=== PATIENT | female | born 1990 ===

== ENCOUNTER 2025-05-23 08:09 | Outpatient (AMB) | payer OTHER, SELFPAY ==
--- OUTSIDE RECORDS SUMMARY | 2025-05-23 08:19 | XMS_ITS | Clinical Summary ---
Author Organization [facility] Address [address] [place] [phone] Phone Care Team Providers Care Account Manager Relief Name Role Phone Unavailable Primary Care Provider Unavailabl e Immunizations Immunization Administration Dates Next Due DTP 04/22/1997, 6,03/12/1995,12/06,1992 HPV, Quadrivalent 09/28/2008,11/27/2007,08/28/19 08 Hep B, ped/adol 03/22/1995, 5,1992,03/01 Hib (PRP-T) 12/06/1994,1992 IPV 04/22/1997 Influenza, injectable, trivalent 08/28/2007,01/0 08/2006 MMR 04/22/1997,12/06/1994 Meningococcal Conj (Menactra) MCV4P 08/28/2007 OPV 03/12/1995,12/06/1994,1992 Td (adult) (MBL), 2 Lf tetan us toxoid, PF, adsorbed 12/26/2004 Tdap 09/02/2007 Varicella 08/28/2007,04/26/2003 Social History Tobacco Use Types Packs/Day Years Used Date Smoking Tobacco: Never Assessed Comments Unknown Sex and Gender Information Value Date Recorded Sex Assigned at Not on file Legal Sex Female 4:28 PM EDT Gender Identity Not on file Sexual Orientation Not on file Last Filed Vital Signs Vital Sign Reading Time Taken Comments Blood Pressure 104/60 10/06/2009 12:00 AM EDT Pulse - - Temperature - - Respiratory Rate - - Oxygen Saturation - - Inhaled Oxygen Concentration - - Weight 72.6 kg (160 lb) 10/06/2009 12:00 AM EDT Height 161.3 cm (5' 3.5 ) 10/06/2009 12:00 AM ED T Body Mass Index 27.9 10/06/2009 12:00 AM EDT Plan of Treatment Health Maintenance Due Date Last Done Comments DTaP,Tdap,and Td Vaccines (7 - Td or Tdap) 09/01/2017 09/02/2007, 12/26/2004, 04/22/1997, Additional history exists Influenza Vaccines (#1) 2025 08/28/2007, 06/25 COVID-19 Vaccine ( season) 2025 HIB Vaccines Completed 12/06/1994, 1992 Hepatitis B Vaccines Completed 03/22/1995, 12/06/1994, 1992, Additional history exists IPV Vaccines Completed 04/22/1997, 02/22, 12/06/1994, Additional history exists MMR Vaccines Completed 04/22/1997, 12/06/1994 Meningococcal Vaccine Aged Out 08/28/2007 No fabiano fernando eligible based on patient's age to complete this topic Varicella Vaccines Completed 08/28/2007, 04/26/2003 HPV Vaccines Completed 09/28/2008, 11/2007, 08/28/2007 Hepatitis A Vaccines Aged Out No long er eligible based on patient's age to complete this topic Men B Vaccine Aged Out No longer elig ible based on patient's age to complete this topic Pneumococcal Vaccine Aged Out No long er eligible based on patient's age to complete this topic
--- OUTSIDE RECORDS SUMMARY | 2025-05-23 08:19 | XMS_ITS | Clinical Summary ---
Author Organization [facility] it Address [address] [place] [address] Care Team Providers Care [facility] Consultant Name Role Phone Devin Villalpando MD Primary Care Provider Surgical History Surgery Date Site/Laterality Comments OTHER SURGICAL HISTORY 1992 PROCEDURE: MD REPAIR CARDIAC WOUND W/O BYPASS; COMMENT: Hole in heart Medical History Medical History Date Comments Depression DX:Depression; C OMMENT: Previously on medication Family History Medical History Relation Name Comments Breast cancer Aunt 1 Depression Father Relation Name Status Comments Aunt 1 Aunt 2 Brother 1 Alive Brother 2 Alive Brother 3 Alive Brother 4 Alive Brother 5 Alive Father Alive Mother Alive Sister 1 Alive Sister 2 Alive Sister 3 Alive Sister 4 Alive Social History Tobacco Use Types Packs/Day Years Used Date Smoking Tobacco: Former Alcohol Use Standard Drinks/Week Comments No 0 (1 standard drink = 0.6 oz pur e alcohol) Comments Unknown Sex and Gender Information Value Date Recorded Sex Assigned at Not on file Legal Sex Female 4:54 AM EST Gender Identity Not on file Sexual Orientation Not on file Obstetrics History Plan of Treatment Health Maintenance Due Date Last Done Comments DTaP,Tdap,and Td Vaccines (1 - Tdap) 02/28/2011 Hepatitis B Vaccines (1 of 3 - 19+ 3-dose series) 02/28/2011 Cervical Cancer Screening: P ap Smear 02/28/2013 HPV Vaccines (1 - 3-dose SCD M series) 02/28/2019 Depression Screening 06/23/2024 COVID-19 Vaccine (1 - 2024-2 6 season) 2025 Influenza Vaccine (#1) 2025 RSV Immunization Adult Patie nts (1 - 1-dose 75+ series) 02/28/2067 HIB Vaccines Aged Out No longer eligi ble based on patient's age to complete this topic Hepatitis A Vaccines Aged Out No long er eligible based on patient's age to complete this topic IPV Vaccines Aged Out No longer eligi ble based on patient's age to complete this topic MMR Vaccines Aged Out No longer eligi ble based on patient's age to complete this topic Meningococcal ACWY Vaccine Aged Out N o longer eligible based on patient's age to complete this topic Meningococcal B Vaccine Aged Out No l onger eligible based on patient's age to complete this topic Pneumococcal Vaccine: Pediat rics (0 to 5 Years) and At-Risk Patients (6 to 49 Years) Aged Out No longer eligible b ased on patient's age to complete this topic RSV Immunization Patients Un lizz 20 months Aged Out No longer eligible b ased on patient's age to complete this topic Varicella Vaccines Aged Out No longer eligible based on patient's age to complete this topic Care Teams Healthcare Network Consultant Relationship Specialty Start Date End Date Devin Villalpando MD [address] [place] [address] PCP - General Internal Medicine 01/08/16
--- OUTSIDE RECORDS SUMMARY | 2025-05-23 08:19 | XMS_ITS | Encounter Summary ---
Author Organization [facility] Address [address] [place] [address] Phone Care Team Providers Care Child Development Consultant Name Role Phone Paola Garcia DO Primary Care Provider [phone] Encounter Details Date Type Department Care Team (Late st Contact Info) Description 02/06/2017 Conversion Encounter [facility] [place] [address] [place] [address] Social History Tobacco Use Types Packs/Day Years Used Date Smoking Tobacco: Never Assessed Comments Unknown Sex and Gender Information Value Date Recorded Sex Assigned at Not on file Legal Sex Female 4:28 PM EDT Gender Identity Not on file Sexual Orientation Not on file documented as of this encounter Plan of Treatment Not on file documented as of this encounter Visit Diagnoses Not on filedocumented in this encounter Care Teams Child Development Consultant Relationship Specialty Start Date End Date Paola Garcia DO [address] [place] [address] PCP - General 01/31/17 12/02/22 documented as of this encounter
--- NOTE | 2025-05-23 11:54 | A.OFFVIS_ITS ---
VS Expanded 05/23/25 12:03 Height 5 ft 3 in Weight 206 lb 6 oz BMI 36.6 Body Fat % 35.5 Body Fat Mass 73.4 Fat Free Mass 132 Visceral Fat Rating 8 Body Water % 46.2 Body Water Mass 95.4 Basal Metabolic Rate/Score 1,833 Intake Visit Reasons: [facility] BMI 36.6 Allergies No Known Allergies Allergy (Verified 05/23/25 11:54) Medication List - Last Reconciled 05/23/25 by Selvin Smith MD albuterol sulfate 2.5 mg inhalation Q4-6H PRN [biotin PO] levocetirizine 5 mg PO DAILY [magnesium PO] [vitamin b PO] [vitamin c PO] HPI HPI TV [facility] BMI 36.6: Details: Start time: 11.45am, End time: 12.45pm ?I spent 55 minutes speaking with the patient on the phone plus an additional 5 minutes reviewing and updating records for a total of 60 minutes HPI Comments Details: Previous weight loss efforts: Keto diet and exercise: lost 40lbs, presently on a standstill Wakes up: 4.30am, Sleeps: 9pm Breakfast: 10am (cheese, pepperoni, fruits, peppers) Lunch: 1.30pm (same as breakfast) Dinner: 6.30pm (meat kaserole, steak salad, salmon with vegetables) Snacks: 4pm (nuts), 8pm (fruits) Exercise: none Beverages: Coffee: only weekends, Tea: 2-3 cups/d with Stevia, Soda: none, Juice: none, ETOH: none PFSH Medical History (Updated 05/23/25 @ 12:35 by Selvin Smith MD) Asthma BMI 36.0-36.9,adult Obesity Surgical History (Updated 03/11/25 @ 08:44 by Brittni Martinez CMA) Hx of heart surgery Family History (Updated 03/11/25 @ 08:45 by Brittni Martinez CMA) Mother No problems noted. Father Asthma Depression Anxiety Social History (Updated 03/11/25 @ 08:46 by Brittni Martinez CMA) Alcohol intake: former Patient Tobacco Use Status: Never used Tobacco Telehealth Telehealth Telehealth Platform: Telephone Location of provider rendering services: practice address Location of patient: address on file Patient Identification confirmed using: Name, : Yes Telehealth method: voice only Patient verbally consented to treatment: Yes Patient verbally consented to billing insurance company: Yes Patient informed of any privacy concerns related to visit: Yes Minutes spent on Phone/Video with Pt.: 60 Assessment & Plan Assessment & Plan (1) Obesity: Code(s): E66.9 - Obesity, unspecified Category: Medical Qualifiers: Obesity type: due to excess calories Obesity classification: adult class 2 (BMI 35 - 39.9) Serious obesity comorbidity presence: with serious comorbidity Body mass index: BMI 36.0-36.9 Qualified Code(s): E66.812 - Obesity, class 2; Z68.36 - Body mass index [BMI] 36.0-36.9, adult Plan: 1.? Plan for lap sleeve gastrectomy. If diaphragmatic or ventral hernias are present at time of surgery, these will be repaired laparoscopically as well. I emphasized the importance of close follow-up, adherence to instructions and good communication. The surgery does not replace the need to change your lifestlyle which is the cause of the obesity problem. The surgery provides the motivation to try again to change your lifestyle, it reduces the appetite and make the transition to a better lifestyle easier and doubles the amount of weight you would lose compared to doing the lifestyle change without the surgery. You will need to be on a liquid diet with protein shakes for 2 weeks before surgery to maximize weight loss and boost your nutritional status to recover better from surgery and also for the first two weeks after surgery to let the stomach heal before we introduce other foods. After the first 2 weeks we will introduce protein bars and soft foods like scrambled eggs, cottage cheese and yogurt and after the 6th week will introduce meat, fish and cooked vegetables in small amounts. Over time you should be able to eat everything in small amounts. Side effects like nausea, vomiting, heartburn or abdominal pain are not common in the practice unless you are not following in the practice. This operation requires lifetime commitment to following in our practice and communication with me. You will much less weight and experience side effects if you don?t communicate or not following in the practice. Complications are rare and in our practice is about 1/10 of the national average. However, you can develop bleeding that may require transfusion (hasn?t happened for year in the practice), you may from complications (we did not have any deaths in the practice) and infections. Infections are usually a result of breakdown in communication or not understanding or following directions correctly. They are difficult to treat, they can happen during the first 6 weeks, they may require to be in the hospital for weeks or even months, not being able to eat by mouth and you may have drains and surgeries to try and correct the issue. Other risks and complications include possible conversion to an open procedure, leaks, small bowel obstruction, blood clots, cardiac, or pulmonary complications, as senior care complications such as ulcers, insufficient weight loss and vitamin deficiencies. 2. Nutritional counseling. Start with one premade PREMIER protein (buy at [employer] or [employer]) shake (mix 4oz of Premier mixed with 4oz low fat unsweetened almond milk) at 5am-7am, one protein bar (Fit Crunch protein bar, buy at [employer], or [employer]) at 8am-10am, another premade PREMIER protein shake (mix 4oz of Premier mixed with 4oz low fat unsweetened almond milk) at 11am-1pm, another [employer]unch protein bar at 2pm-4pm,? dinner at 5pm (8 forks of protein and 8 forks of salad/vegetables) and another PREMIER shake (mix 4oz of Premier mixed with 4oz low fat unsweetened almond milk). So you do 3 protein shakes, 2 protein bars and one meal per day. Meal to include lean meat (beef, fish, pork, turkey, chicken), or mohawk yogurt, or egg whites, or beans with a salad with olive oil and fruits (berries, pears, apples, kiwi). Avoid salt, breads, potatoes, rice, pasta, desserts. 3. Each shake would be drunk slowly, like coffee in a period of 2 hours. 4. Cut each bar in 4 pieces and eat each piece in 30min ?to make each bar last 2 hours. 5. I emphasized the importance of measuring accurately the food portion and measure it when serving the food in plate 6. The meal portions include 8 full-size forks of meat and 8 full-size forks of salad. You always eat the meat portion but you can replace up to 4 forks for salad/vegetables with rice, potatoes or pasta, or a fruit ?if you like. The less you do it the better weight loss will be. 7. One full-size fork is what it can be scooped on the fork without falling aside and not what can be bit with the fork. Use regular forks like those you find in a typical restaurant. 8.? Please buy the body composition scale we discussed and send me weight measurements as soon as possible and then once a week. Always include your diet and exercise plan. 9. The best choice would be to purchase a stationary bike at home that can track calories. If you get one, please start stationary bike at a resistance level of 4.0 Increase level by 1.0 every 3 min to a max level of 10.0. Stay at this level for 3 min and then return to level 4.0 and repeat same steps until 300 calories are burned. Goal is to burn 2000 calories per week on exercise 10.?Despite the control pill, it is important of avoiding and for at least 18 months postoperatively and has been discussed at the infosession. 11. Goal is to lose at least 1.5-2lbs per week 12. Goal to lose 10% of your weight before surgery, which is about 20lbs. Ultimate weight goal: 186lbs before surgery 13. Please follow the diet plan exactly without any change. If you don't like something about the plan or you feel hungry you need to communicate with me so I can help you revise the plan. You should not change the plan yourself 14. To be scheduled for EGD to assess the stomach's anatomy. The possibility of biopsies was discussed. Patient needs to avoid use of NSAIDs and aspirin for 1 week prior to EGD. You must be on liquids only the day before your endoscopy. Risks of perforation and bleeding was discussed with the patient. This will be an outpatient procedure with IV sedation. Orders: Orders Complete Blood Count Auto Diff Today E66.9 - Obesity, unspecified, J45.909 - Unspecified asthma, uncomplicated, Z68.36 - Body mass index [BMI] 36.0-36.9, adult Lipid Panel Today E66.9 - Obesity, unspecified, J45.909 - Unspecified asthma, uncomplicated, Z68.36 - Body mass index [BMI] 36.0-36.9, adult Vitamin B12 and Folate Today E66.9 - Obesity, unspecified, J45.909 - Unspecified asthma, uncomplicated, Z68.36 - Body mass index [BMI] 36.0-36.9, adult Zinc Today E66.9 - Obesity, unspecified, J45.909 - Unspecified asthma, uncomplicated, Z68.36 - Body mass index [BMI] 36.0-36.9, adult C Reactive Protein Today E66.9 - Obesity, unspecified, J45.909 - Unspecified asthma, uncomplicated, Z68.36 - Body mass index [BMI] 36.0-36.9, adult Vitamin B1 Today E66.9 - Obesity, unspecified, J45.909 - Unspecified asthma, uncomplicated, Z68.36 - Body mass index [BMI] 36.0-36.9, adult Ferritin Today E66.9 - Obesity, unspecified, J45.909 - Unspecified asthma, uncomplicated, Z68.36 - Body mass index [BMI] 36.0-36.9, adult Vitamin D 25-OH Total Today E66.9 - Obesity, unspecified, J45.909 - Unspecified asthma, uncomplicated, Z68.36 - Body mass index [BMI] 36.0-36.9, adult ECG 12 lead EKG Today E66.9 - Obesity, unspecified, J45.909 - Unspecified asthma, uncomplicated, Z68.36 - Body mass index [BMI] 36.0-36.9, adult FL upper GI w air Today E66.9 - Obesity, unspecified, J45.909 - Unspecified asthma, uncomplicated, Z68.36 - Body mass index [BMI] 36.0-36.9, adult Insulin Today E66.9 - Obesity, unspecified, J45.909 - Unspecified asthma, uncomplicated, Z68.36 - Body mass index [BMI] 36.0-36.9, adult Hemoglobin A1c Today E66.9 - Obesity, unspecified, J45.909 - Unspecified asthma, uncomplicated, Z68.36 - Body mass index [BMI] 36.0-36.9, adult H Pylori Breath Test Today E66.9 - Obesity, unspecified, J45.909 - Unspecified asthma, uncomplicated, Z68.36 - Body mass index [BMI] 36.0-36.9, adult IRON PROFILE Today E66.9 - Obesity, unspecified, J45.909 - Unspecified asthma, uncomplicated, Z68.36 - Body mass index [BMI] 36.0-36.9, adult Comprehensive Met. Panel Today E66.9 - Obesity, unspecified, J45.909 - Unspecified asthma, uncomplicated, Z68.36 - Body mass index [BMI] 36.0-36.9, adult Vitamin A Today E66.9 - Obesity, unspecified, J45.909 - Unspecified asthma, uncomplicated, Z68.36 - Body mass index [BMI] 36.0-36.9, adult TSH reflex Free T4 Today E66.9 - Obesity, unspecified, J45.909 - Unspecified asthma, uncomplicated, Z68.36 - Body mass index [BMI] 36.0-36.9, adult US abdomen comp w elastography Today E66.9 - Obesity, unspecified, J45.909 - Unspecified asthma, uncomplicated, Z68.36 - Body mass index [BMI] 36.0-36.9, adult XR chest 2V Today E66.9 - Obesity, unspecified, J45.909 - Unspecified asthma, uncomplicated, Z68.36 - Body mass index [BMI] 36.0-36.9, adult Referrals Behavioral Health Referral E66.9 - Obesity, unspecified, J45.909 - Unspecified asthma, uncomplicated, Z68.36 - Body mass index [BMI] 36.0-36.9, adult Nutrition/Dietitian Referral E66.9 - Obesity, unspecified, J45.909 - Unspecified asthma, uncomplicated, Z68.36 - Body mass index [BMI] 36.0-36.9, adult
[2025-05-23 12:03] VITALS: BMI 36.6
== END 2025-05-23 12:46 | disposition home or self-care (01) ==
LOC: HO.HBS 08:09
PROVIDERS: PCP Internal Medicine; Visit Provider Surgery
DX: E66.812 Obesity, class 2 (principal); Z68.36 Body mass index [BMI] 36.0-36.9, adult
CPT/HCPCS: 98011